=== PATIENT | female | born 1985 | race Asian ===

== ENCOUNTER 2017-07-12 06:31 | Emergency (ER) | payer OTHER ==
[~2017-07-12 06:31] MED LIST: HYDR-2758 PO; NAPR500T4 PO
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
[2017-07-12] MEDS ORDERED: HYDROcodone/APAP 5/325MG 1 TAB TABLET PO ONE ×2 (07:00→10:00)
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
[2017-07-12] MEDS ORDERED: IOHEXOL 300 MG/ML 100ML VIAL. IV ONE (08:45)
[2017-07-12] MEDS ORDERED: CONTRAST GIVEN MC PRN (08:45)
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
[2017-07-12] MEDS ORDERED: IBUP-1007 PO (09:44)
[2017-07-12] MEDS ORDERED: CYCL5TAB PO (09:44)
[2017-07-12] MEDS ORDERED: KETOROLAC 30 MG/ML INJ. IV ONE (09:45)
[2017-07-12] MEDS ORDERED: HYDR-971 PO (09:54)
[2017-07-12 10:11] VITALS: BP 115/81
== END 2017-07-12 10:15 | disposition home or self-care (01) ==
LOC: ER 06:31
DX: S02.2XXA Fracture of nasal bones, initial encounter for closed fracture (principal); R22.2 Localized swelling, mass and lump, trunk; Z88.5 Allergy status to narcotic agent; V89.2XXA Person injured in unspecified motor-vehicle accident, traffic, initial encounter; Y93.89 Activity, other specified; Y99.8 Other external cause status; Y92.488 Other paved roadways as the place of occurrence of the external cause
CPT/HCPCS: 36415; 70450; 70486; 71260; 72125; 72128; 72131; 73564; 80047; 85014; 85018; 96374; 99284; J1885; Q9967

== ENCOUNTER 2017-07-28 15:16 | Emergency (ER) | payer OTHER ==
[~2017-07-28 15:16] MED LIST changes: +CYCL5TAB PO; +HYDR-971 PO; +IBUP-1007 PO
[2017-07-28] MEDS ORDERED: fentaNYL PF VIAL 100 MCG/2 ML VIAL IV ONE (15:45)
[2017-07-28] MEDS ORDERED: KETOROLAC 30 MG/ML INJ. IV ONE (15:45)
[2017-07-28 15:54] LABS: BASO % 0 % (0-3); EOS % 2 % (0-3); HEMOGLOBIN 14.1 g/dL (12.0-15.5); LYMPH % 36 % (24-48); MEAN CORPUSCULAR HEMOGLOBIN 30 pg (25-35); MEAN CORPUSCULAR HGB CONC 33 g/dL (31-37); MEAN CORPUSCULAR VOLUME 92 fL (79-100); MONO % 7 % (0-9); NEUT % 55 % (31-73); PLATELET COUNT 272 x10^3/uL (140-400); RED BLOOD COUNT 4.66 x10^6/uL (3.50-5.40); RED CELL DISTRIBUTION WIDTH 13.5 % (11.5-14.5); WHITE BLOOD COUNT 5.7 x10^3/uL (4.0-11.0)
[2017-07-28 16:01] LABS: CALCIUM 8.7 mg/dL (8.5-10.1); CREATININE 0.9 mg/dL (0.6-1.0); GFR 72.1; POTASSIUM 3.7 mmol/L (3.5-5.1)
[2017-07-28 16:03] LABS: PROTHROMBIN TIME PATIENT 12.2 SEC (11.7-14.0)
[2017-07-28 16:10] LABS: ALBUMIN 3.8 g/dL (3.4-5.0); ALBUMIN/GLOBULIN RATIO 0.9 (1.0-1.7); MAGNESIUM 2.1 mg/dL (1.8-2.4); TOTAL BILIRUBIN 0.5 mg/dL (0.2-1.0)
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
[2017-07-28] MEDS ORDERED: IOHEXOL 300 MG/ML 100ML VIAL. IV ONE (16:15)
[2017-07-28] MEDS ORDERED: CONTRAST GIVEN MC PRN (16:15)
[2017-07-28 16:25] VITALS: BP 111/65
--- NOTE | 2017-07-28 16:44 | RAD ---
Left Lower Extremity Venous Doppler Ultrasound: Indication: Pain and swelling. Comparison: None. Procedure: Color flow, duplex and 2D images are obtained with and without compression in the area of the common femoral vein, superficial femoral vein - femoral vein junction, main femoral vein (superficial femoral vein) and popliteal vein. Veins of the proximal calf are also imaged. Findings: There is normal duplex flow, color flow and compressibility of all visualized vein segments. No evidence of deep venous thrombus is present. Impression: Normal venous Doppler ultrasound with no evidence of DVT.
--- NOTE | 2017-07-28 16:59 | RAD ---
Clinical history: Left-sided chest pain dyspnea and elevated D dimer. Axial helical images of the chest were obtained after the administration of 75 cc of IV Omni 300 and timed appropriately for a pulmonary arterial study. Multiplanar reconstruction was performed on a work station for a CT pulmonary angiogram of the chest with contrast. There are no filling defects to suggest pulmonary embolism. The lungs and pleural margins are clear. The small anterior sella mass is again seen unchanged. Impression: 1. No evidence of pulmonary embolism. 2. 19 mm x 21 mm mediastinal mass could be related to the thymus or could be a complex cyst. This is unchanged compared to the July 12, 2017 study. Consider a follow-up MRI as an outpatient. PQRS Compliance Statement: One or more of the following individualized dose reduction techniques were utilized for this examination: 1. Automated exposure control 2. Adjustment of the mA and/or kV according to patient size 3. Use of iterative reconstruction technique
[2017-07-28] MEDS ORDERED: HYDR-971 PO (17:29)
== END 2017-07-28 17:47 | disposition home or self-care (01) ==
LOC: ER 15:16
DX: R07.89 Other chest pain (principal); J98.59 Other diseases of mediastinum, not elsewhere classified; R79.1 Abnormal coagulation profile; G43.909 Migraine, unspecified, not intractable, without status migrainosus; Z88.6 Allergy status to analgesic agent
CPT/HCPCS: 36415; 71275; 80053; 81025; 82550; 83690; 83735; 83880; 84484; 85025; 85610; 85730; 93971; 96374; 96375; 99285; J1885; J3010; Q9967

== ENCOUNTER → 2017-08-01 | Outpatient (CLI) | payer OTHER ==
[2017-07-28 16:25] VITALS: BP 111/65
[~2017-08-01] MED LIST changes: +GADOBUTROL 7.5 MMOL/7.5 ML VIAL IV ONE
--- NOTE | 2017-08-01 16:40 | RAD ---
MR of the chest with gadolinium, 08/01/2017: History: Anterior mediastinal mass Imaging of the mediastinum was performed in axial and coronal planes utilizing a variety of imaging sequences including T2 weighted, fat suppressed T2 weighted and opposed phase gradient echo sequences. Dynamic T1 weighted fat suppressed images were also obtained following IV injection of 7.5 cc of the Gadavist contrast agent. There is a 2.3 cm smooth nodule in the anterior mediastinum as also noted on the CT chest exam of 07/28/2017. It demonstrates increased signal intensity on the T2-weighted and fat-suppressed T2 weighted sequences. It is of higher signal intensity than muscle on the T1-weighted sequence. There is no drop-off of signal intensity on the out of phase sequence. There appears to be a thin low signal intensity capsule. It does not show definite enhancement on the postcontrast scans. The appearance suggests a complicated cyst such as a thymic cyst or a duplication cyst. No other mediastinal abnormality is detected. IMPRESSION: The patient's known anterior mediastinal mass demonstrates signal characteristics suggesting a complicated cyst such as a thymic cyst or foregut duplication cyst. A cystic thymoma is less likely. Further CT surveillance is suggested to confirm stability.
== END | disposition home or self-care (01) ==
LOC: MRI 08:39
PROVIDERS: ATTEND Nurse Practitioner
DX: J98.59 Other diseases of mediastinum, not elsewhere classified (principal); Z90.49 Acquired absence of other specified parts of digestive tract
CPT/HCPCS: 71552